=== PATIENT | male | born 1950 | race African-American/Black ===

== ENCOUNTER 2017-07-29 03:17 | Emergency (ER) | payer MEDICARE, OTHER ==
[~2017-07-29] VITALS: Ht 177.8 cm; Wt 114.4 kg
[~2017-07-29 03:17] MED LIST: OMEP20CA16 PO
[2017-07-29 03:24] VITALS: Ht 177.8 cm; Wt 114.4 kg
[2017-07-29] MEDS ORDERED: FLUT9.9S NASAL (03:41)
[2017-07-29] MEDS ORDERED: LORA5TAB4 PO (03:41)
[2017-07-29] MEDS ORDERED: BENZ200C43 PO (03:41)
--- NOTE | 2017-07-29 03:49 | ERD ---
ER Documentation Chief Complaint Chief Complaint right ear pain, nasal drip, body aches HPI Patient is a 67-year-old male presenting to the emergency department with complaints of postnasal drip starting 24 hours ago. Mild in severity. Has had similar symptoms in the past and he denies fevers, chills, or other symptoms at this time. No medication taken at home for relief. ROS All systems reviewed and are negative except as per history of present illness. Medications Home Meds Active Scripts Loratadine* (Claritin*) 5 Mg Tab.rapdis, 5 MG PO DAILY, #30 TAB Prov:MAIKEL ELKINS PA-C 07/29/17 Fluticasone Propionate (Flonase Allergy Relief) 9.9 Ml [place].susp, 2 SPRAY NASAL DAILY, #1 BOTTLE TO EACH NOSTRIL Prov:MAIKEL ELKINS PA-C 07/29/17 Benzonatate* (Benzonatate*) 200 Mg Capsule, 200 MG PO TID Y for COUGH, #20 CAP Prov:MAIKEL ELKINS PA-C 07/29/17 Reported Medications Omeprazole* (Omeprazole*) 20 Mg Capsule.dr, 20 MG PO DAILY, CAP 08/08/15 Allergies Allergies: Uncoded Allergies: PENICILLIN (Allergy, Intermediate, RASH, 10/20/13) SULFA (Allergy, Intermediate, RASH, 10/20/13) PMhx/Soc History of Surgery: Yes ([facility]) Anesthesia Reaction: No Hx Neurological Disorder: No Hx Respiratory Disorders: Yes (SEASONAL ALLERGIES) Hx Cardiac Disorders: Yes (HRT MURMUR) Hx Psychiatric Problems: No Hx Miscellaneous Medical Probl: No Hx Alcohol Use: No Hx Substance Use: No Hx Tobacco Use: No (HIGH SCHOOL YEARS) Physical Exam Vitals Vital Signs Date Time Temp Pulse Resp B/P Pulse Ox O2 Delivery O2 Flow Rate FiO2 07/29/17 03:24 98.3 101 20 139/86 97 Physical Exam Const: Nontoxic, well-appearing male in no acute distress. Head: Atraumatic Eyes: Normal Conjunctiva ENT: Normal External Ears, Nose and Mouth. Nares are congested. Postnasal drip noted to the posterior pharynx. Resp: Clear to auscultation bilaterally Cardio: Regular rate and rhythm, no murmurs Skin: No petechiae or rashes Ext: No cyanosis, or edema Neur: Awake and alert Psych: Normal Mood and Affect Procedures/MDM 67-year-old male presenting to the emergency department with complaints of postnasal drip. Symptoms are very similar to what the patient is experienced in the past. He is stable for outpatient management with prescriptions. Low suspicion for life-threatening illness at time of discharge. Patient is to return immediately for any new or worsening symptoms and follow up with his primary care physician within the next 1-2 days. Departure Diagnosis: Primary Impression: Post-nasal drip Condition: Fair Patient Instructions: Nasal Allergies: Related Problems Referrals: [facility] YOU HAVE RECEIVED A MEDICAL SCREENING EXAM AND THE RESULTS INDICATE THAT YOU DO NOT HAVE A CONDITION THAT REQUIRES URGENT TREATMENT IN THE EMERGENCY DEPARTMENT. FURTHER EVALUATION AND TREATMENT OF YOUR CONDITION CAN WAIT UNTIL YOU ARE SEEN IN YOUR DOCTORS OFFICE WITHIN THE NEXT 1-2 DAYS. IT IS YOUR RESPONSIBILITY TO MAKE AN APPOINTMENT FOR FOLOW-UP CARE. IF YOU HAVE A PRIMARY DOCTOR --you should call your primary doctor and schedule an appointment IF YOU DO NOT HAVE A PRIMARY DOCTOR YOU CAN CALL OUR PHYSICIAN REFERRAL HOTLINE AT IF YOU CAN NOT AFFORD TO SEE A PHYSICIAN YOU CAN CHOSE FROM THE FOLLOWING [facility] [address] [facility]. [facility] [address] [facility]. [facility] [address] [facility] [facility] [address] [facility]. [facility] [address] [facility] [facility]. [address] Additional Instructions: Call your primary care doctor TOMORROW for an appointment during the next 1-2 days.See the doctor sooner or return here if your condition worsens before your appointment time. MAIKEL ELKINS PA-C Jul 29, 2017 03:48
[2017-07-29] MEDS ORDERED: LANS30CA47 PO (03:54)
== END 2017-07-29 04:00 | disposition home or self-care (01) ==
LOC: FTE 03:17
DX: R09.82 Postnasal drip (principal)
CPT/HCPCS: 99283

== ENCOUNTER 2018-01-11 04:26 | Emergency (ER) | END 2018-01-11 07:26 | disposition home or self-care (01) ==